=== PATIENT | female | born 1980 | race Caucasian/White ===

== ENCOUNTER 2016-05-05 14:46 | Emergency (ER) | payer MEDICAID ==
[2016-05-05 15:41] VITALS: BP 133/66; PULSE 98; TEMP 97.6; BMI 15.9
--- NOTE | 2016-05-05 16:01 | EDPRACDOC ---
- General Information Chief Complaint: Medication Refill Stated Complaint: ANXIETY MED REFILL Time Seen by Provider: 05/05/16 15:58 Information Source: Patient Mode Of Arrival: Car Home Medications: Home Medications Alprazolam 1 mg PO Q8H PRN #21 tablet 05/05/16 Oxycodone HCl/Acetaminophen [Percocet 5-325 mg Tablet] 1 each PO Q8H PRN #21 tablet 05/05/16 Allergies/Adverse Reactions: Allergies Allergy/AdvReac Type Severity Reaction Status Date / Time No Known Allergies Allergy Verified 05/05/16 15:46 - History of Present Illness HPI: PT PRESENTS TODAY FOR MEDICATION REFILL ON XANAX AND PERCOCET. DR. JEFFERY DHILLON HAS BEEN OUT OF THE CLINIC THIS WEEK D/T IN THE FAMILY AND WE HAVE BEEN SEEING THESE PTS ALL WEEK. [facility] IS SENDING PTS HERE FOR REFILLS. Context: Reports: Ran out of Medication Medication for: Reports: Pain, Psychiatric Pain: Reports: None ED Past Medical History - History Reviewed Yes Nurses notes reviewed and agree except as marked - Patient Medical History Psychological History: Reports: Anxiety. Denies: Depression Systemic History: Denies: Cancer Surgical History: Denies: Hysterectomy - Social Medical History Smoking Status: Heavy tobacco smoker (5 or more cigarettes/day or daily pipe/ cigar) EDM Review of Systems - Review of Systems ROS Negative Except as Marked: Yes All systems reviewed and were negative except as marked Constitutional: No Symptoms Reported Respiratory: No Symptoms Reported Cardiovascular: No Symptoms Reported Gastrointestinal: No Symptoms Reported Neurological: No Symptoms Reported Musculoskeletal: No Symptoms Reported Integumentary: No Symptoms Reported Psychiatric: No Symptoms Reported - Physical Exam Constitutional: Alert (Awake), No apparent distress Oriented to: Time, Person, Place Last recorded Vital Signs: Last Vital Signs Temp 97.6 F 05/05/16 15:40 Pulse 98 05/05/16 15:40 Resp 18 05/05/16 15:40 BP 133/66 05/05/16 15:40 Pulse Ox 97 05/05/16 15:40 Oxygen Pulse Oxygen Saturation 97 O2 Device Oxygen Flow Rate Fraction of Inspired Oxygen ( FIO2) - HEENT Head: Normal Eye Exam: Normal Neck: Normal, Denies Pain, Midline - Respiratory/Cardiovascular Respiratory: Normal - CTA Cardiovascular: Normal - GI Palpation: Normal Tenderness: Non tender - Musculoskeletal Back: Normal Extremities: Normal - Integumentary Skin: Normal Lymphatics: Normal - Neurologic Cerebellar: Normal Mood Description: Normal Thought: Coherent Perception: Normal Decision Time to Discharge: 15:59 - Departure Disposition: Home Condition: Good Final Diagnosis: Medication refill Instructions: Medication Refill Education/Counseling Given To: Patient Education/Counseling Given Regarding: Diagnosis, Treatment, Follow Up Referrals: Jeffery Dhillon MD [Primary Care Provider] - One Week Prescriptions: Alprazolam 1 mg PO Q8H PRN #21 tablet PRN Reason: Anxiety Oxycodone HCl/Acetaminophen [Percocet 5-325 mg Tablet] 1 each PO Q8H PRN #21 tablet PRN Reason: Pain Forms: Primary / Family Care Contact Additional Instructions: FOLLOW UP WITH PCP.
== END 2016-05-05 16:06 | disposition home or self-care (01) ==
LOC: EDMC 14:46
DX: Z76.0 Encounter for issue of repeat prescription (principal)
CPT/HCPCS: 99282